=== PATIENT | female | born 1995 | race Caucasian/White ===

== ENCOUNTER 2017-02-27 01:45 | Emergency (ER) | payer BC ==
[2017-02-27 03:22] VITALS: BP 142/63
--- NOTE | 2017-02-27 04:30 | ED ---
Alfa Peng Rebecca, scribed for Mika Sargent MD on 02/27/17 at 0224 . Bite Injury/Animal - HPI Summary HPI Summary: Pt is a 21 y/o F who presents to ED s/p potential bat bite at 0100 on this date. Pt reports a bat had gotten into her house and was trying to catch it with a plastic garbage bag when she believes she got bitten. Reports a small red kassy on her L middle finger. Sx aggravated and alleviated by nothing. Denies any pain, ranking pain as 0/10. Confirms she caught the bat in a garbage bag which is in her car. Tetanus shot is UTD. Permanent resident of [facility], though she resides in [facility]. [facility] has been notified. - History of Current Complaint Chief Complaint: EDGeneral Stated Complaint: BIT BY BAT LEFT MIDDLE FINGER Time Seen by Provider: 02/27/17 02:20 Hx Obtained From: Patient Onset of Injury: Happened hours ago - 1.5 hours ago, Still Present Type of Bite: Wild Animal - Bat Has Animal Been Immunized?: No Severity Currently: None Pain Intensity: 0 Pain Scale Used: 0-10 Numeric Aggravating Factor(s): Nothing Alleviating Factor(s): Nothing Associated Signs And Symptoms: Positive: Negative Animal Available for Observation: Yes Animal Control Notified: Yes - Allergies/Home Medications Allergies/Adverse Reactions: Allergies Allergy/AdvReac Type Severity Reaction Status Date / Time Penicillins Allergy Hives Verified 12/13/12 21:19 Shellfish Allergy Allergy Hives Verified 12/13/12 21:19 PMH/Surg Hx/FS Hx/Imm Hx Endocrine/Hematology History: Denies: Hx Anticoagulant Therapy, Hx Diabetes, Hx Thyroid Disease Cardiovascular History: Denies: Hx Hypertension, Hx Pacemaker/ICD Respiratory History: Denies: Hx Asthma, Hx Chronic Obstructive Pulmonary Disease (COPD) GI History: Denies: Hx Ulcer History: Denies: Hx Renal Disease Neurological History: Denies: Hx Dementia, Hx Seizures Psychiatric History: Denies: Hx Substance Abuse - Surgical History Surgery Procedure, Year, and Place: ta Infectious Disease History: Denies: Hx Clostridium Difficile, Hx Hepatitis, Hx Human Immunodeficiency Virus (HIV), Hx of Known/Suspected MRSA, Hx Shingles, Hx Tuberculosis, Hx Known/ Suspected VRE, Hx Known/Suspected VRSA, History Other Infectious Disease, Traveled Outside the [place] in Last 30 Days - Family History Known Family History: Positive: Diabetes - Social History Alcohol Use: Occasionally Substance Use Type: Reports: None Smoking Status (MU): Never Smoked Tobacco Have You Smoked in the Last Year: No Review of Systems Constitutional: Negative Eyes: Negative ENT: Negative Cardiovascular: Negative Respiratory: Negative Gastrointestinal: Negative Genitourinary: Negative Musculoskeletal: Negative Positive: Other - Small redmark on her L palm Neurological: Negative Psychological: Normal All Other Systems Reviewed And Are Negative: Yes Physical Exam - Summary Physical Exam Summary: The patient is well-nourished in no acute distress and in no acute pain. The skin is warm and dry and skin color reflects adequate perfusion. Red kassy on her left hand on the palmar aspect in front of the 4th finger. Skin appears intact, not broken. FROM with intact pulses. HEENT: The head is normocephalic and atraumatic. The pupils are equal and reactive. The conjunctivae are clear and without drainage. Nares are patent and without drainage. Mouth reveals moist mucous membranes and the throat is without erythema and exudate. The external ears are intact. The ear canals are patent and without drainage. The tympanic membranes are intact. Neck is supple with full range of motion and non-tender. There are no carotid bruits. There is no neck vein distension. Respiratory: Chest is non-tender. Lungs are clear to auscultation and breath sounds are symmetrical and equal. Cardiovascular: Hear is regular rate and rhythm. There is no murmur or rub auscultated. Pulses are symmetrical and equal. Musculoskeletal: There is no back pain noted. Extremities are non-tender with full range of motion. There is good capillary refill. Neurological: Patient is alert and oriented to person, place and time. The patient has symmetrical motor strength in all four extremities. Cranial nerves are grossly intact. Psychiatric: The patient has an appropriate affect and does not exhibit any anxiety or depression. Triage Information Reviewed: Yes Vital Signs On Initial Exam: Initial Vitals Temp Pulse Resp BP Pulse Ox 97.4 F 96 16 141/76 100 02/27/17 01:45 02/27/17 01:45 02/27/17 01:45 02/27/17 01:45 02/27/17 01:45 Vital Signs Reviewed: Yes Diagnostics - Vital Signs Vital Signs Temp Pulse Resp BP Pulse Ox 02/27/17 01:45 97.4 F 96 16 141/76 100 - Laboratory Lab Statement: Any lab studies that have been ordered have been reviewed, and results considered in the medical decision making process. Re-Evaluation - Re-Evaluation First Eval Re-Evaluation Time: 02:50 Change: Unchanged Comment: Notified patient that [facility] will come over tomorrow to test the bat. Bite Injury Course/Dx - Course Assessment/Plan: Pt is a 21 y/o F with a CC of possible bat bite on her L palm at 0100 this morning. Pt reports she caught the bat in a plastic garbage bag, which is in her car. [facility] has been notified. [facility] will test the bat tomorrow and determine her care based on results. - Diagnoses Provider Diagnosis: Exposure to bat without known bite Discharge - Discharge Plan Condition: Stable Disposition: HOME Referrals: Casie Lagos DO [Primary Care Provider] - 3 Days Additional Instructions: Wash hands. [facility] will come over tomorrow to test the bat and determine a course of treatment, if necessary. The documentation as recorded by the Alfa mcneill Rebecca accurately reflects the service I personally performed and the decisions made by , Mika Sargent MD.
== END 2017-02-27 03:21 | disposition home or self-care (01) ==
LOC: ED 01:45
DX: Z20.3 Contact with and (suspected) exposure to rabies (principal); Z88.0 Allergy status to penicillin; Z91.013 Allergy to seafood
CPT/HCPCS: 99282

== ENCOUNTER 2017-10-24 17:16 | Emergency (ER) | payer BC, OTHER ==
[2017-10-24] MEDS ORDERED: NS 0.9% 1000 ML* 1,000 ML IV ONE (17:22)
[2017-10-24] MEDS ORDERED: Metoclopramide IV* 5 MG/ML 2 ML VIAL IV ONE (17:53)
[2017-10-24 18:08] LABS: ABS Basophils 0.1 10^3/ul (0-0.2); ABS Eosinophils 0 10^3/ul (0-0.6); ABS Lymphocytes 1.3 10^3/ul (1.0-4.8); ABS Monocytes 0.8 10^3/ul (0-0.8); ABS Neutrophils 18.3 10^3/ul (1.5-7.7); ABS Nucleated RBC 0 10^3/ul; Eosinophil % 0 % (0-6); Hematocrit 36 % (35-47); Lymphocyte % 6.4 % (25-47); Mean Corpuscular HGB Conc 34 g/dl (31-36); Mean Corpuscular Hemoglobin 32 pg (27-31); Mean Corpuscular Volume 96 fL (80-97); Mean Platelet Volume 8 um3 (7.4-10.4); Nucleated Red Blood Cells % 0; Platelet Count 306 10^3/ul (150-450); Red Blood Count 3.71 10^6/ul (4.0-5.4); Red Cell Distribution Width 13 % (10.5-15); White Blood Count 20.4 10^3/ul (3.5-10.8)
--- NOTE | 2017-10-24 18:15 | ED ---
Abdominal Pain/Female - HPI Summary HPI Summary: 23 week patient here with nausea and vomiting which developed in the middle of last night. She reports development of right lower quadrant pain since N/V started. Has a low-grade headache which she feels is from dehydration - has not been able to keep any liquids down since this started. No history of hyperemesis gravidarum during her . She denies fevers, chills, dysuria, urinary urgency, hematuria, pelvic pain or cramping, vaginal discharge or irritation. She does report some Rt sided lower back discomfort but didn't think much of it. Pain in RLQ is worse w/ riding over bumps on way here. Has not been urinating much d/t lack of fluid intake w/ N/V. Last BM ? No previous h/o ab surgery. She follows with [facility] [place] and has had care. Did have influenza A but this was dx'd on DAy 5 - tried tamiflu but couldn't keep it down. Has had residual nasal congestino since but otherwise respiratory tract is clear and no cough or chest pain, SOB. Overall has had a healthy . - History of Current Complaint Chief Complaint: EDAbdPain Stated Complaint: VOMITING Time Seen by Provider: 10/24/17 17:22 Hx Obtained From: Patient, Family/Contract Project Manager - sister present w/ her today Hx Last Menstrual Period: 08/13/16 Pain Intensity: 4 Allergies/Adverse Reactions: Allergies Allergy/AdvReac Type Severity Reaction Status Date / Time MS Penicillins [Penicillins] Allergy Hives Verified 12/13/12 21:19 MS Shellfish Allergy Allergy Hives Verified 12/13/12 21:19 [Shellfish Allergy] PMH/Surg Hx/FS Hx/Imm Hx Previously Healthy: Yes Endocrine/Hematology History: Denies: Hx Anticoagulant Therapy, Hx Diabetes, Hx Thyroid Disease Cardiovascular History: Denies: Hx Hypertension, Hx Pacemaker/ICD Respiratory History: Reports: Other Respiratory Problems/Disorders - INFLUENZA A THIS SEASON - RESOLVED W/O RESIDUAL EFFECTS Denies: Hx Asthma, Hx Chronic Obstructive Pulmonary Disease (COPD) GI History: Denies: Hx Crohn's Disease, Hx Gall Bladder Disease, Hx Gastroesophageal Reflux Disease, Hx Ulcer History: Denies: Hx Kidney Infection, Hx Kidney Stones, Hx Renal Disease Neurological History: Denies: Hx Dementia, Hx Seizures Psychiatric History: Denies: Hx Substance Abuse - Surgical History Surgery Procedure, Year, and Place: ta Infectious Disease History: No Infectious Disease History: Denies: Hx Clostridium Difficile, Hx Hepatitis, Hx Human Immunodeficiency Virus (HIV), Hx of Known/Suspected MRSA, Hx Shingles, Hx Tuberculosis, Hx Known/ Suspected VRE, Hx Known/Suspected VRSA, History Other Infectious Disease, Traveled Outside the [place] in Last 30 Days - Family History Known Family History: Positive: Diabetes - Social History Occupation: Employed Full-time - NURSE IN ED Alcohol Use: None - not since Hx Substance Use: No Substance Use Type: Reports: None Hx Tobacco Use: No Smoking Status (MU): Never Smoked Tobacco Have You Smoked in the Last Year: No Review of Systems Positive: Fatigue Eyes: Negative ENT: Negative Negative: Chest Pain Negative: Shortness Of Breath, Cough Positive: Abdominal Pain, Vomiting, Nausea. Negative: Diarrhea Positive: flank pain - ?. Negative: burning, dysuria, discharge, frequency, hematuria, incontinence, pain, urgency Musculoskeletal: Negative Skin: Negative Positive: Headache - dull Psychological: Normal All Other Systems Reviewed And Are Negative: Yes Physical Exam Triage Information Reviewed: Yes Vital Signs On Initial Exam: Initial Vitals Temp Pulse Resp BP Pulse Ox 98.6 F 108 18 116/65 98 10/24/17 17:19 10/24/17 17:19 10/24/17 17:19 10/24/17 17:19 10/24/17 17:19 Vital Signs Reviewed: Yes Appearance: Positive: No Pain Distress, Well-Nourished, Ill-Appearing - appears fatiged Skin: Positive: Warm, Skin Color Reflects Adequate Perfusion, Dry Head/Face: Positive: Normal Head/Face Inspection Eyes: Positive: Normal, EOMI ENT: Positive: Normal ENT inspection, Hearing grossly normal, Pharynx normal - oral mucosa moist but lips are dry, Nasal congestion - subtle, TMs normal. Negative: Nasal drainage, Tonsillar swelling, Tonsillar exudate, Trismus, Muffled voice Neck: Positive: Supple, Nontender, No Lymphadenopathy Respiratory/Lung Sounds: Positive: Clear to Auscultation, Breath Sounds Present. Negative: Rales, Rhonchi, Wheezes Cardiovascular: Positive: Normal, Tachycardia - mild, S1, S2. Negative: Murmur , Rub Abdomen Description: Positive: No Organomegaly, Soft, Other: - abdomen - TTP in RLQ - no rebounding; all other areas of ab are NTTP; movement seen and felt in RLQ. Negative: CVA Tenderness (R), CVA Tenderness (L) Bowel Sounds: Positive: Present Musculoskeletal: Positive: Normal, Strength/ROM Intact Neurological: Positive: Normal, Sensory/Motor Intact, Alert, Oriented to Person Place, Time, CN Intact II-III Psychiatric: Positive: Normal Diagnostics - Vital Signs Vital Signs Temp Pulse Resp BP Pulse Ox 10/24/17 17:19 98.6 F 108 18 116/65 98 - Laboratory Lab Results: Lab Results 10/24/17 Range/Units 17:55 WBC 20.4 H (3.5-10.8) 10^3/ul RBC 3.71 L (4.0-5.4) 10^6/ul Hgb 12.0 (12.0-16.0) g/dl Hct 36 (35-47) % MCV 96 (80-97) fL MCH 32 H (27-31) pg MCHC 34 (31-36) g/dl RDW 13 (10.5-15) % Plt Count 306 (150-450) 10^3/ul MPV 8 (7.4-10.4) um3 Neut % (Auto) 89.4 H (38-83) % Lymph % (Auto) 6.4 L (25-47) % [place] % (Auto) 3.9 (1-9) % Eos % (Auto) 0 (0-6) % Baso % (Auto) 0.3 (0-2) % Absolute Neuts (auto) 18.3 H (1.5-7.7) 10^3/ul Absolute Lymphs (auto) 1.3 (1.0-4.8) 10^3/ul Absolute Monos (auto) 0.8 (0-0.8) 10^3/ul Absolute Eos (auto) 0 (0-0.6) 10^3/ul Absolute Basos (auto) 0.1 (0-0.2) 10^3/ul Absolute Nucleated RBC 0 10^3/ul Nucleated RBC % 0 Result Diagrams: 10/24/17 17:55 10/24/17 17:55 Lab Statement: Any lab studies that have been ordered have been reviewed, and results considered in the medical decision making process. Re-Evaluation - Re-Evaluation First Eval Change: Improved - nausea initially improved with reglan however pt vomited after a repeat ab exam - compazine and benadryl ordered Second Eval Change: Improved - nausea resolved - resting comfortably -pain minimal Abdominal Pain Fem Course/Dx - Course Course Of Treatment: 23 week patient presents with abrupt nausea vomiting and right lower quadrant pain in the middle of the night last night. She reports her pain is 4 out of 10 presently and worse with movement better at rest. Notes she had pain in this area while riding over here when hitting bumps in the road. Her vitals are remarkable for mild tachycardia at 108 however blood pressure, temperature, pulse ox and respirations are within normal limits. Her labs are impressive for an elevated white blood cell count of 20 with an elevated CRP of 11. Lactic acid is within normal limits. Her urinalysis reveals ketones however otherwise is normal. An ultrasound of for appendix and urinary tract was ordered. Appendix was not identified however secondary inflammation and fluid was also not seen. Her renal ultrasound revealed left- sided hydronephrosis with good jets. Discussed case with Dr. Chavarria [employer] who was concerned that her white count was more elevated than it should be for alone. Spoke with Dr. Wilkins who suggested MRI of the abdomen versus monitoring with close follow-up. Discussed these options with the patient who initially wanted monitoring with close follow-up however she developed return of nausea and vomiting despite Reglan and temperature went from 98-100.1F. An MRI of the abdomen was ordered and results are negative for appendicitis. Patient reports she feels much better after second round of antiemetic, this time Compazine and Benadryl. She is receiving IV fluid and supplement replacement for mild hypokalemia and hypomagnesemia. She'll be discharged tonight. Advised follow-up with [facility] and PCP but to return to the ED if danger signs or symptoms present. Patient agrees with plan. - Diagnoses Provider Diagnoses: Abdominal pain in , Nausea/vomiting in Discharge - Discharge Plan Condition: Stable Disposition: HOME Prescriptions: Prochlorperazine TAB* [Compazine Tab*] 10 mg PO Q6H PRN #10 tab PRN Reason: Nausea Patient Education Materials: Nausea and Vomiting in (ED), Abdominal Pain in (ED) Forms: *Work Release Referrals: Casie Lagos DO [Doctor of Osteopathy] - Additional Instructions: The definitive cause of your right-sided abdominal pain with nausea and vomiting was not identified tonight however you do not appear to have any surgical pathologies requiring you to stay in the hospital. You will be sent home with a nausea medication and encouraged to stay hydrated with water, Gatorade, broth, etc. Advance diet as tolerated. Follow-up with your primary care provider this week if symptoms linger. If you develop cramping and vaginal discharge/bleeding follow-up with [facility]. If you develop a spike in fever despite acetaminophen, intractable vomiting and diarrhea, worsening of abdominal pain, return to the emergency department
[2017-10-24 18:21] LABS: EGFR Non-African American 174.2 (>60)
--- NOTE | 2017-10-24 19:05 | RAD ---
HISTORY: Hydronephrosis, assess for stone COMPARISONS: None TECHNIQUE: Multiple transverse and longitudinal ultrasound images were obtained of the right kidney and bladder using grayscale and color Doppler imaging. FINDINGS: RIGHT KIDNEY: The right kidney is normal in shape, size, contour, and echogenicity. There is moderate pelvocaliectasis. There is no appreciable nephrolithiasis. The right kidney measures 11.7 x 5.3 x 5.1 cm. LEFT KIDNEY: No images are submitted of the left kidney . BLADDER: The bladder is smooth in contour. Bilateral ureteral jets are identified. AORTA AND IVC: No images are submitted of the vasculature. RETROPERITONEUM: Unremarkable. OTHER: None. IMPRESSION: LEFT HYDRONEPHROSIS WITHOUT APPRECIABLE NEPHROLITHIASIS. BILATERAL URETERAL JETS ARE NOTED.
--- NOTE | 2017-10-24 19:12 | RAD ---
HISTORY: Right lower quadrant pain, COMPARISONS: None TECHNIQUE: Multiple transverse and longitudinal ultrasound images were obtained of the right lower quadrant using grayscale and color Doppler imaging. FINDINGS: The appendix is not visualized. There is no free or loculated fluid within the right lower quadrant. IMPRESSION: THE APPENDIX IS NOT VISUALIZED. THERE IS NO FREE OR LOCULATED FLUID WITHIN THE RIGHT LOWER QUADRANT.
[2017-10-24 19:13] LABS: Urine Appearance Clear; Urine Blood Negative (Negative); Urine Color Yellow; Urine Ketones 2+ (Negative); Urine Protein Negative (Negative); Urine Urobilinogen Negative (Negative)
[2017-10-24] MEDS ORDERED: PROCHLORPERAZINE INJ 5 MG/ML 2 ML VIAL IV ONE (20:21)
[2017-10-24] MEDS ORDERED: diPHENhydraMINE IV* 50 MG/ML 1 ml VIAL (BENADRYL) SLOW PUSH ONE (20:21)
[2017-10-24] MEDS ORDERED: Magnesium Sulfate 1 GM IV* 1 GM/100 ML BAG IV ONE (20:24)
[2017-10-24] MEDS ORDERED: NS 0.9% w/ 20 Meq KCL 1000 ML* 1,000 ML IV SCH (21:00)
[2017-10-24] MEDS ORDERED: NS 0.9% w/ 20 Meq KCL 1000 ML* 1,000 ML IV ONE (21:00)
--- NOTE | 2017-10-24 21:59 | RAD ---
HISTORY: Right lower quadrant pain, fever, nausea and vomiting, 23 weeks COMPARISONS: Ultrasound dated October 24, 2017 TECHNIQUE: The following sequences were obtained of the abdomen: Axial T1-weighted images, T2-weighted images and T2-weighted images with fat saturation, coronal T1 and T2-weighted images, sagittal T2-weighted images. FINDINGS: HEPATOBILIARY SYSTEM: Grossly normal. SPLEEN: Grossly normal. ADRENALS: Grossly normal. KIDNEYS: Again noted is right-sided pelvocaliectasis. BLADDER: Unremarkable. PELVIC ORGANS: The uterus is gravid. anatomy is not well evaluated on the current examination. There is no appreciable retroplacental fluid collections. There is dilatation of the pelvic vasculature consistent with the gravid state. GI TRACT: There is no obstruction. A tubular, vermiform, hollow viscus that is blind-ending and heterogeneous from the cecum is identified, best seen on coronal images 20-34 and sagittal images 20-32, consistent with the appendix. This measures up to 0.5 cm in caliber. This is located at the level of the right mid abdomen anterior to the psoas muscle. There is no appreciable loculated fluid collection. There is no appreciable periappendiceal inflammatory change, though evaluation is limited secondary to technique and the patient's gravid state. BONES AND SOFT TISSUES: Unremarkable IMPRESSION: A NORMAL APPEARING APPENDIX IS IDENTIFIED WITHOUT PERIAPPENDICEAL INFLAMMATORY CHANGE OR LOCULATED FLUID COLLECTION. IF THERE IS PERSISTENT CLINICAL CONCERN FOR APPENDICITIS, RECOMMEND ATTENTION ON FOLLOW-UP IMAGING.
[2017-10-24] MEDS ORDERED: Prochlorperazine TAB* 10 MG PO ONE (22:49)
[2017-10-25 00:21] VITALS: BP 110/57
== END 2017-10-25 00:21 | disposition home or self-care (01) ==
LOC: ED 17:16
DX: O21.2 Late vomiting of pregnancy (principal); O99.89 Other specified diseases and conditions complicating pregnancy, childbirth and the puerperium; N13.30 Unspecified hydronephrosis; O26.892 Other specified pregnancy related conditions, second trimester; R10.9 Unspecified abdominal pain; Z3A.23 23 weeks gestation of pregnancy; Z88.0 Allergy status to penicillin
CPT/HCPCS: 36415; 74181; 76705; 76775; 80053; 81003; 83605; 83690; 83735; 85025; 86140; 87502; 96361; 96365; 96366; 96375; 99283; J0780; J1200; J2765; J3475

== ENCOUNTER 2018-03-03 07:53 | Inpatient (IN) | payer BC, OTHER ==
[2018-03-03] MEDS ORDERED: Misoprostol TAB* 100 MCG ONE (09:04)
--- NOTE | 2018-03-03 09:18 | HP ---
General Information - General Information Maternal Age: 22 Grav: 1 Para: 0 SAB: 0 IEA: 0 Estimated Due Date: 02/20/18 Determined By: Early Ultrasound Gestational Age in Weeks and Days: 41 Weeks and 4 Days Maternal Blood Type and Rh: B Positive - Results this Serology/RPR Result: Non-Reactive Rubella Result: Immune HBsAg Result: Negative HIV Result: Negative GBS Culture Result: Negative Past Medical History Pertinent Past Medical History: Non-Contributory Pertinent Past Surgical History: See Records - Tonsillectomy Pertinent Family History: Non-Contributory - Antepartal Records Antepartal Records: Reviewed, Uncomplicated Review of Systems Constitutional: Comfortable CV Complaint: No Respiratory: Shortness of Breath: No Gastrointestinal: No Nausea/Vomiting, Normal Bowel Movement Genitourinary: No Bleeding, No Leaking Fluid Musculoskeletal: No Complaint Neurological: No Headache Movement: Normal Exam Allergies/Adverse Reactions: Allergies MS Penicillins [Penicillins] Allergy (Verified 12/13/12 21:19) Hives MS Shellfish Allergy [Shellfish Allergy] Allergy (Verified 12/13/12 21:19) Hives BP 123/70, P 102, R 18, T 98.7 - Measurements Height: 5 ft 7 in Weight: 195 lb Weight in lbs: 195 Body Mass Index (BMI): 30.5 Pre- Weight: 140 lb Weight Gained This : 55 lbs and 0 ozs - Exam Abdomen: No Upper Quadrant Pain Breast: Breast Exam Deferred CVA: No CVA Tenderness Extremities: No Edema Heart: Normal Rhythm/Heart Sounds HEENT: No Significant Findings Lungs: Clear Bilaterally Rectal: Rectal Exam Deferred Reflexes: DTR 2+ Thyroid: No Thyromegaly - Abdominal Exam Abdomen Exam: Non-Tender, Fundal Height Consistent with Dates - Ultrasound/Biophysical Profile Ultrasound Status: Not Done Targeted Exam Findings See L&D Outpatient Visit Provider Note for Findings: N/A Estimated Weight: 7 1/2 lbs Cervical Exam: 3cm Effacement: 80% Station: -1 Presenting Part: Vertex Membrane Status: Intact Bleeding/Discharge: None EFM Findings - External Monitor Findings Baseline Heart Rate: 130 External Monitor Findings: Accelerations Present, No Pattern of Variable or Late Decelerations, Variability Moderate, Baseline Stable Contractions: None Assessment/Plan - Reason for Visit Reason for Visit: postdates induction of labor - Obstetrical Risk Factors Obstetrical Risk Factors: Post-Dates - 41 12/24 - Plan Plan: Induction - Date/Time of Admission Date of Admission: 03/03/18 Time of Admission: 09:18
[2018-03-03 09:42] LABS: ABS Basophils 0 10^3/ul (0-0.2); ABS Eosinophils 0.1 10^3/ul (0-0.6); ABS Lymphocytes 1.9 10^3/ul (1.0-4.8); ABS Monocytes 0.7 10^3/ul (0-0.8); ABS Neutrophils 7.2 10^3/ul (1.5-7.7); ABS Nucleated RBC 0 10^3/ul; Eosinophil % 0.9 % (0-6); Hematocrit 38 % (35-47); Hemoglobin 12.7 g/dl (12.0-16.0); Lymphocyte % 18.8 % (25-47); Mean Corpuscular HGB Conc 34 g/dl (31-36); Mean Corpuscular Hemoglobin 32 pg (27-31); Mean Corpuscular Volume 96 fL (80-97); Mean Platelet Volume 8.8 um3 (7.4-10.4); Nucleated Red Blood Cells % 0; Platelet Count 287 10^3/ul (150-450); Red Blood Count 3.91 10^6/ul (4.00-5.40); Red Cell Distribution Width 13 % (10.5-15); White Blood Count 9.9 10^3/ul (3.5-10.8)
[2018-03-03] MEDS ORDERED: Oxytocin in LR* 20 UNITS/1,000 ML BAG IVPB SCH (15:00)
[2018-03-03] MEDS ORDERED: OBEPIDURAL* 250 ML EPIDURAL ONE (15:09)
[2018-03-03] MEDS ORDERED: fentaNYL* 50 MCG/ML 2 ML VIAL (100 MCG VIAL) IV ONE (15:15)
[2018-03-03] MEDS ORDERED: Sodium Citrate/Citric Acid* 15 ML UDC PO PRN (15:52)
[2018-03-03] MEDS ORDERED: Phenylephrine IV* 40 MCG/ML 10 ML SYRINGE IV PUSH PRN ×2 (15:52)
[2018-03-03] MEDS ORDERED: Famotidine TAB* 20 MG PO PRN (15:52)
[2018-03-03] MEDS ORDERED: EPHEDrine (Pressors)* 50 MG/ML VIAL IV PUSH PRN ×2 (15:52)
[2018-03-03] MEDS ORDERED: OBEPIDURAL* 250 ML EPIDURAL SCH (16:00)
[2018-03-04] MEDS ORDERED: Ibuprofen TAB* 600 MG ONE (01:55)
[2018-03-04] MEDS ORDERED: Witch Hazel PAD* JAR TOPICAL PRN (01:56)
[2018-03-04] MEDS ORDERED: Acetaminophen TAB* 325 MG PO PRN (01:56)
[2018-03-04] MEDS ORDERED: Dibucaine 1% 28.35 GM TUBE PR PRN (01:56)
[2018-03-04] MEDS: Ibuprofen TAB* 600 MG PO PRN ×3 (10:20→22:01)
[2018-03-04] MEDS: Docusate CAP* 100 MG PO SCH ×3 (10:20→22:01)
[2018-03-05 08:30] LABS: ABS Basophils 0 10^3/ul (0-0.2); ABS Eosinophils 0.2 10^3/ul (0-0.6); ABS Lymphocytes 1.9 10^3/ul (1.0-4.8); ABS Monocytes 0.6 10^3/ul (0-0.8); ABS Neutrophils 10.5 10^3/ul (1.5-7.7); ABS Nucleated RBC 0 10^3/ul; Eosinophil % 1.7 % (0-6); Hematocrit 34 % (35-47); Hemoglobin 11.5 g/dl (12.0-16.0); Lymphocyte % 14.2 % (25-47); Mean Corpuscular HGB Conc 34 g/dl (31-36); Mean Corpuscular Hemoglobin 33 pg (27-31); Mean Corpuscular Volume 95 fL (80-97); Mean Platelet Volume 8.3 um3 (7.4-10.4); Nucleated Red Blood Cells % 0; Platelet Count 250 10^3/ul (150-450); Red Blood Count 3.54 10^6/ul (4.00-5.40); Red Cell Distribution Width 13 % (10.5-15); White Blood Count 13.3 10^3/ul (3.5-10.8)
[2018-03-05 08:48] VITALS: BP 111/66
[2018-03-05] MEDS: Ibuprofen TAB* 600 MG PO PRN (08:57)
[2018-03-05] MEDS: Docusate CAP* 100 MG PO SCH (08:57)
[2018-03-05] MEDS ORDERED: Ferrous Gluconate TAB* 324 MG TAB PO SCH (09:00)
== END 2018-03-05 14:52 | disposition home or self-care (01) | DRG 560 ==
LOC: MCHOBOUT 07:53 → MCHOB 08:25
PROVIDERS: ADMIT Midwife; ATTEND Midwife
PROC: 10E0XZZ Delivery of Products of Conception, External Approach (ICD-10-PCS; principal; 2018-03-04)
PROC: 3E033VJ Introduction of Other Hormone into Peripheral Vein, Percutaneous Approach (ICD-10-PCS; 2018-03-04)
PROC: 10907ZC Drainage of Amniotic Fluid, Therapeutic from Products of Conception, Via Natural or Artificial Opening (ICD-10-PCS; 2018-03-04)
PROC: 0HQ9XZZ Repair Perineum Skin, External Approach (ICD-10-PCS; 2018-03-04)
DX: O48.0 Post-term pregnancy (principal); O70.0 First degree perineal laceration during delivery; Z37.0 Single live birth; Z3A.41 41 weeks gestation of pregnancy
CPT/HCPCS: 36415; 85025; 86850; 86900; 86901; A9270-GY; S0191

== ENCOUNTER 2018-03-20 09:32 | Observation (INO) | payer BC, OTHER ==
[2018-03-20] MEDS ORDERED: Ketorolac INJ* 30 MG/ML 1 ML VIAL IV PUSH ONE (10:04)
[2018-03-20 10:19] LABS: ABS Basophils 0 10^3/ul (0-0.2); ABS Eosinophils 0 10^3/ul (0-0.6); ABS Lymphocytes 0.7 10^3/ul (1.0-4.8); ABS Monocytes 0.3 10^3/ul (0-0.8); ABS Neutrophils 12.1 10^3/ul (1.5-7.7); ABS Nucleated RBC 0 10^3/ul; Eosinophil % 0.3 % (0-6); Hematocrit 39 % (35-47); Hemoglobin 13.2 g/dl (12.0-16.0); Mean Corpuscular HGB Conc 34 g/dl (31-36); Mean Corpuscular Hemoglobin 32 pg (27-31); Mean Corpuscular Volume 94 fL (80-97); Mean Platelet Volume 7.8 um3 (7.4-10.4); Nucleated Red Blood Cells % 0; Platelet Count 449 10^3/ul (150-450); Red Blood Count 4.09 10^6/ul (4.00-5.40); Red Cell Distribution Width 12 % (10.5-15); White Blood Count 13.1 10^3/ul (3.5-10.8)
[2018-03-20 10:40] LABS: EGFR Non-African American 108.2 (>60)
--- NOTE | 2018-03-20 11:17 | RAD ---
HISTORY: RLQ pain COMPARISONS: None TECHNIQUE: Multiple transverse and longitudinal ultrasound images were obtained of the right lower quadrant using grayscale and color Doppler imaging. FINDINGS: The appendix is not visualized. There is a small amount of free fluid within the right lower quadrant. There is no loculated fluid collection. IMPRESSION: FREE FLUID WITHIN THE RIGHT LOWER QUADRANT. THERE IS NO LOCULATED FLUID COLLECTION. THE APPENDIX IS NOT VISUALIZED.
--- NOTE | 2018-03-20 11:27 | RAD ---
INDICATION: . Right lower quadrant pain. COMPARISON: None TECHNIQUE: Longitudinal and transverse transabdominal and limited transvaginal scans of the pelvis were obtained. FINDINGS: Uterus: The uterus is mildly prominent consistent with recent state. There is no focal mass. There is mild heterogeneity. The uterus measures 10.9 x 5.5 x 7.5 cm. Endometrial thickness: The endometrial thickness normal and measured at 1.0 cm. The endometrial stripe is mildly heterogeneous and there is a small amount of endometrial fluid.. Free fluid: There is a small amount of free fluid in the cul-de-sac . Ovaries: The ovaries are normal in size. The right ovary measures 4.1 x 1.6 x 3.0 cm. The left ovary measures 3.9 x 2.0 x 3.1 cm. . Doppler interrogation demonstrates flow to each ovary. Other: None IMPRESSION: POST APPEARANCE OF THE UTERUS. MILDLY HETEROGENEOUS ENDOMETRIUM WITH SMALL AMOUNT OF ENDOMETRIAL FLUID.
[2018-03-20] MEDS ORDERED: NS 0.9% 1000 ML* 1,000 ML IV ONE (11:38)
--- NOTE | 2018-03-20 12:35 | RAD ---
INDICATION: March 04, 2018. RIGHT flank pain. COMPARISON: March 20, 2018 RIGHT lower quadrant and pelvic ultrasound. October 24, 2017 MRI abdomen. TECHNIQUE: Multidetector CT images were obtained from the lung bases to the ischial tuberosities. Evaluation of the viscera is limited without IV contrast. Multiplanar reformation. REPORT: Unremarkable visualized inferior thorax. Unremarkable liver, gallbladder, and pancreas. Top normal 12.8 cm cephalocaudal spleen. Negative for CT abnormality of the upper GI or small bowel. The appendix is ill-defined visualized posterior to the cecum extending medially over the anterior margin of the RIGHT psoas muscle. The appendix measures approximate 1 cm maximum diameter. No definitive appendicolith visualized. Moderate periappendiceal change and small lymph nodes with dominant 0.8 cm short axis node. Small volume of RIGHT lower quadrant and pelvic free fluid. No CT abnormality of the unopacified colon. Normal adrenal glands. Negative for obstructive uropathy. The nondilated RIGHT ureter courses through the region of appendiceal inflammation. Unremarkable urinary bladder. Moderately prominent anteverted uterus. Unremarkable adnexal regions. Unremarkable abdominal aorta and iliac arteries. Physiologic distention of the IVC. Negative for suspicious osseous structures. IMPRESSION: #. Acute appendicitis with moderate periappendiceal inflammatory change. Negative for perienteric abscess. #. Associated RIGHT lower quadrant reactive lymph nodes. Results assessed with Dr. Augustin 03/20/2018 12:31 PM EDT
[2018-03-20] MEDS ORDERED: fentaNYL* 50 MCG/ML 2 ML VIAL (100 MCG VIAL) ONE ×2 (13:48→14:53)
[2018-03-20] MEDS ORDERED: Midazolam* 1 MG/ML 5 ML VIAL (5 MG) ONE (13:48)
[2018-03-20] MEDS ORDERED: Atracurium* 10 MG/ML 10 ML VIAL ONE (13:48)
[2018-03-20] MEDS ORDERED: ceFOXitin 2 GM IVPREMIX* 2 GM/50 ML BAG IVPB ONE (13:59)
[2018-03-20] MEDS ORDERED: Bupivacaine 0.5% SDV PF* 30ML VIAL ONE (14:04)
[2018-03-20] MEDS ORDERED: PROCHLORPERAZINE INJ 5 MG/ML 2 ML VIAL ONE (14:39)
[2018-03-20] MEDS ORDERED: Propofol* 10 MG/ML 20 ML BTL IV PUSH ONE (14:39)
[2018-03-20] MEDS ORDERED: Neostigmine Methylsulfate* 1 MG/ML 10 ML VIAL (1 mg/ml) ONE (14:39)
[2018-03-20] MEDS ORDERED: Glycopyrrolate IV* 0.2 MG/ML 1 ML VIAL ONE (14:39)
[2018-03-20] MEDS ORDERED: Dexamethasone IV* 4 MG/ML 1 ML (4 MG) ONE (14:39)
[2018-03-20] MEDS ORDERED: fentaNYL* 50 MCG/ML 2 ML VIAL (100 MCG VIAL) IV PRN (14:42)
[2018-03-20] MEDS ORDERED: Naloxone* 0.4 MG/ML 1 ML VIAL IV PRN (14:42)
[2018-03-20] MEDS ORDERED: Morphine INJ* 2 MG/ML 1 ML CARPUJECT IV PRN ×2 (14:42→16:38)
[2018-03-20] MEDS ORDERED: DiMENhydriNATE IV* 50 MG/ML VIAL IV PUSH PRN (14:42)
[2018-03-20] MEDS ORDERED: oxyCODONE/Acetamin 5/325 MG* TAB PO PRN (14:42)
[2018-03-20] MEDS ORDERED: PROCHLORPERAZINE INJ 5 MG/ML 2 ML VIAL IV PRN (14:42)
[2018-03-20] MEDS ORDERED: Scopolamine 1.5 mg* PATCH TRANSDERM PRN (14:42)
--- NOTE | 2018-03-20 15:18 | HP ---
HISTORY AND PHYSICAL: DATE OF ADMISSION: 03/20/18 REASON FOR ADMISSION: Abdominal pain. CHIEF COMPLAINT: Right lower quadrant abdominal pain. 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 Yesterday, she developed some generalized abdominal discomfort, became more localized in the right lower quadrant over the course of the last 12 to 16 hours. This has been associated with anorexia without vomiting or diarrhea. She had some chills last night, but she did not take her temperature. Over the course of the evening, the pain became worse and more intense with movement. She presented to the emergency room here today and was noted to have a temperature of 101. Her heart rate was elevated up into the 120s. Laboratory workup included a white blood cell count of 13,000 with an elevated CRP of 48.52. The remainder of the her laboratories were unremarkable. She underwent both a pelvic ultrasound and right lower quadrant abdominal ultrasound, which showed some free fluid in the pelvis, but the appendix was not visualized. She subsequently underwent a CT scan of the abdomen and pelvis without oral or IV contrast - she is allergic to SHELLFISH - and this showed findings consistent with acute appendicitis without abscess or extraluminal air to suggest perforation. Surgical consultation has been obtained. PAST MEDICAL HISTORY: Unremarkable. PAST SURGICAL HISTORY: None. MEDICATIONS: vitamins. ALLERGIES: PENICILLIN and SHELLFISH. 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 She does not use tobacco or alcohol. REVIEW OF SYSTEMS: Cerebrovascular: No dizziness or visual disturbances. Cardiovascular: No chest pain or shortness of breath. Pulmonary: No wheezing or hemoptysis. GI: As per above. : No urgency or hematuria. OB: She has a healthy baby boy delivered 2 weeks ago. She is nursing presently. PHYSICAL EXAMINATION GENERAL: She is a well-developed, slender female, appears to be somewhat pale and fatigued, but otherwise awake, alert, conversant and very pleasant. VITAL SIGNS: Temperature 101, pulse 125, blood pressure 108/70. LUNGS: Clear to auscultation with normal respiratory effort. HEART: Regular rate and rhythm without murmurs, rubs or gallops. ABDOMEN: Soft and slightly distended. She had normoactive bowel sounds throughout. There are no prior surgical incisions or hernias. She has tenderness throughout her abdomen, more severe in the right lower quadrant with some voluntary guarding. There was no muscle rigidity, however. PSYCHIATRIC: She is awake, alert and oriented x3. She has normal judgment and insight. IMPRESSION: 1. Acute appendicitis. 2. Two weeks , presently nursing. PLAN/RECOMMENDATIONS: Laparoscopic appendectomy today. I discussed the findings and the clinical history and physical exam as well as the CT scan, all are consistent with acute appendicitis. I recommend proceeding with surgery today as a definitive treatment for her acute appendicitis. She agrees with this plan, and we will proceed this afternoon. The risks, but not limited to bleeding, of bleeding, infection, intraabdominal abscess formation, injury to peritoneal and retroperitoneal structures, possibility of an open procedure, postoperative hospital stay and recovery times were also discussed. I did not discuss nonoperative management with IV antibiotics as she is nursing and wishes to proceed with surgery to avoid any prolonged antibiotics if possible. We will proceed today after keeping her n.p.o., IV fluids and a single dose of IV antibiotics preoperatively. [id number]/[facility] #: [id number] DARA
--- NOTE | 2018-03-20 16:22 | BRIEFOPN ---
Brief Operative Note - Surgery Procedures: Procedures OPERATIVE REPORT PRE-OP: Acute appendicitis POST-OP: Acute appendicitis with purulent peritonitis PROCEDURE: Laparoscopic appendectomy SURGEON: MD Cyrus ANESTHESIA: General with Local with Dr. Mensah ASST: none IVF:1.6 liters of crystalloid EBL:min SPECIMEN:Appendix DRAIN: none WOUND CLASS:4 COMPLICATIONS: none TO PACU
[2018-03-20] MEDS ORDERED: Ondansetron INJ* 2 MG/ML VIAL IV PRN (16:38)
[2018-03-20] MEDS ORDERED: Acetaminophen TAB* 325 MG PO PRN (16:38)
[2018-03-20] MEDS ORDERED: Ketorolac INJ* 30 MG/ML 1 ML VIAL ONE (18:20)
[2018-03-20] MEDS: Ketorolac INJ* 30 MG/ML 1 ML VIAL IV PUSH PRN (18:22)
[2018-03-20] MEDS: NS 0.9% 1000 ML* 1,000 ML IV SCH (18:25)
[2018-03-20] MEDS: oxyCODONE/Acetamin 5/325 MG* TAB PO PRN ×2 (19:05→23:09)
[2018-03-20] MEDS: Heparin VIAL(*) 5000 UNITS/ML VIAL (FIVE THOUSAND) SUBCUT SCH (20:23)
[2018-03-20] MEDS: ceFOXitin 2 GM IVPREMIX* 2 GM/50 ML BAG IVPB SCH (20:38)
--- NOTE | 2018-03-20 22:12 | OP ---
CC: [facility].* DATE OF OPERATION: 03/20/18 - ROOM #341 DATE OF : 95 SURGEON: Miguel Bridges MD SALES NEGOTIATOR: None. ANESTHESIOLOGIST: Dr. Mensah. ANESTHESIA: General with local. PRE-OP DIAGNOSIS: Acute appendicitis. POST-OP DIAGNOSIS: Acute appendicitis with purulent peritonitis. OPERATIVE PROCEDURE: Laparoscopic appendectomy. IV FLUIDS: 1.6 L of crystalloid. SPECIMEN: Appendix. DRAINS: None. WOUND CLASSIFICATION: IV. FINDINGS: Appendix showed acute suppurative change and was retrocecal. There was no evidence of gangrene or perforation. There was pus in the lower abdominal quadrants and pelvis but the uterus and ovaries appear to be unremarkable. The terminal ileum and cecum are also normal. DESCRIPTION OF PROCEDURE: Written informed consent was obtained, the abdomen was marked with indelible ink, and preoperative antibiotics were administered. The patient was taken to the operating room and placed in the supine position. Sequential compression devices and a warming blanket were applied. General anesthesia was administered and the abdomen was prepped and draped in usual sterile fashion. Initially, a vertical incision was made just within and below the umbilical fold and the fascia was divided. The peritoneal cavity was entered under direct vision. A 12-mm blunt port was inserted. The abdomen was insufflated to 15 mmHg. Under direct vision, a 5 mm port was placed in the left lower quadrant, and a second 5 mm port was placed in the suprapubic position. Evaluation of the abdominal cavity revealed pus in the lower quadrants and pelvis. The uterus appeared to be of expected size, 2 weeks and appeared to be unremarkable. Both ovaries were unremarkable. Both the terminal ileum and cecum were unremarkable. Some of the areas of small bowel showed some erythema consistent with the pus that was identified. Careful evaluation of the right lower quadrant revealed the appendix which was retrocecal running from medial to lateral along the base of the cecum. The lateral peritoneal attachments of the appendix was able to be visualized, however, and it was thick walled and suppurative, consistent with acute appendicitis. The lateral peritoneal attachments were then divided using the L-hook cautery and I was able to grasp the appendix and bring this up into view as we mobilized it more out of the retroperitoneum. The mesoappendix was identified and divided sequentially with the LigaSure device. The appendix was quiet adherent to the cecum and also, there was the fatty attachment to the terminal ileum which was also adherent to the appendix and this was taken down with the LigaSure with care and meticulous dissection was able to follow the appendix down to its base and the cecum which was unremarkable. There was no noted evidence of gangrene or perforation of the appendix, however. The base of the appendix was then divided with an Endo LIBERTY ordaz load of 45 mm stapler, and the appendix was placed in the EndoCatch bag and brought out through the umbilical incision. I next used 6.5 to 8 L of saline to irrigate all four quadrants until clear of the abdominal cavity. Hemostasis was assured. The staple line was assured to be intact. All ports were removed under direct vision of the camera. There was no abdominal wall bleeding. The umbilical fascia was closed with interrupted 0 Vicryl suture. The skin at the other three incisions was approximated with subcuticular 4-0 Vicryl suture. Steri- Strips were applied. The patient tolerated the procedure well, was taken to the recovery room in stable condition. [id number]/[facility] #: [id number] DARA
[2018-03-20 23:13] LABS: Urine Appearance Clear; Urine Blood Negative (Negative); Urine Color Straw; Urine Ketones Negative (Negative); Urine Protein Negative (Negative); Urine Specific Gravity 1.005 (1.010-1.030); Urine Urobilinogen Negative (Negative)
[2018-03-21] MEDS: NS 0.9% 1000 ML* 1,000 ML IV SCH ×4 (00:54→23:03)
[2018-03-21] MEDS: ceFOXitin 2 GM IVPREMIX* 2 GM/50 ML BAG IVPB SCH ×4 (02:36→21:28)
[2018-03-21] MEDS: oxyCODONE/Acetamin 5/325 MG* TAB PO PRN ×4 (06:37→21:33)
[2018-03-21 06:56] LABS: ABS Basophils 0 10^3/ul (0-0.2); ABS Eosinophils 0 10^3/ul (0-0.6); ABS Lymphocytes 1.1 10^3/ul (1.0-4.8); ABS Monocytes 0.5 10^3/ul (0-0.8); ABS Neutrophils 10.7 10^3/ul (1.5-7.7); ABS Nucleated RBC 0 10^3/ul; Eosinophil % 0 % (0-6); Hematocrit 29 % (35-47); Hemoglobin 10.2 g/dl (12.0-16.0); Lymphocyte % 9.1 % (25-47); Mean Corpuscular HGB Conc 35 g/dl (31-36); Mean Corpuscular Hemoglobin 32 pg (27-31); Mean Corpuscular Volume 94 fL (80-97); Mean Platelet Volume 7.6 um3 (7.4-10.4); Nucleated Red Blood Cells % 0; Platelet Count 338 10^3/ul (150-450); Red Blood Count 3.15 10^6/ul (4.00-5.40); Red Cell Distribution Width 12 % (10.5-15); White Blood Count 12.4 10^3/ul (3.5-10.8)
[2018-03-21 07:17] LABS: EGFR Non-African American 144.2 (>60)
--- NOTE | 2018-03-21 08:16 | PN ---
Progress Note - Progress Note Date of Service: 03/21/18 SOAP: Subjective: Feels better but still with some left and right lower abdominal pain Passing flatus No N/V and tolerating liquids Nursing going well Objective: Temp Pulse Resp BP Pulse Ox 98.5 F 89 16 121/48 99 03/21/18 00:17 03/21/18 00:17 03/21/18 06:37 03/21/18 00:17 03/21/18 02:30 Intake & Output 03/19/18 03/20/18 03/21/18 03/22/18 06:59 06:59 06:59 06:59 Intake Total 6426 Output Total 2650 Balance 3776 Weight 170 lb Intake: IV Fluids 4326 LR 2300 NS (0.9%) 976 NS 50ML, Cefoxitin 2G 50 IVPB 100 ABX - CEFOXITIN 100 Oral 2000 Output: Urine 2650 PEX: Awake and alert-comfortable Lungs are clear Abd is soft and slightly distended. Incisions are CDI Bowel sounds are present Ext without edema Laboratory Results - last 24 hr 03/20/18 03/21/18 03/21/18 22:05 06:35 06:35 WBC 12.4 H RBC 3.15 L Hgb 10.2 L Hct 29 L MCV 94 MCH 32 H MCHC 35 RDW 12 Plt Count 338 MPV 7.6 Neut % (Auto) 86.6 H Lymph % (Auto) 9.1 L [place] % (Auto) 4.3 Eos % (Auto) 0 Baso % (Auto) 0 Absolute Neuts (auto) 10.7 H Absolute Lymphs (auto) 1.1 Absolute Monos (auto) 0.5 Absolute Eos (auto) 0 Absolute Basos (auto) 0 Absolute Nucleated RBC 0 Nucleated RBC % 0 Sodium 140 Potassium 3.8 Chloride 111 Carbon Dioxide 23 Anion Gap 6 BUN 8 Creatinine 0.53 Est GFR ( Amer) 174.5 Est GFR (Non-Af Amer) 144.2 BUN/Creatinine Ratio 15.1 Glucose 105 H Lactic Acid Calcium 8.2 L Total Bilirubin AST ALT Alkaline Phosphatase C-Reactive Protein Total Protein Albumin Globulin Albumin/Globulin Ratio Lipase Urine Color Straw Urine Appearance Clear Urine pH 6.0 Ur Specific [place] 1.005 L Urine Protein Negative Urine Ketones Negative Urine Blood Negative Urine Nitrate Negative Urine Bilirubin Negative Urine Urobilinogen Negative Ur Leukocyte Esterase 2+ A Urine WBC (Auto) 2+(11-20/hpf) A Urine RBC (Auto) Trace(0-2/hpf) Urine Bacteria Absent Urine Glucose Negative Assessment: POD#1 s/p lap appy for acute appendicitis with purulent peritonitis Afebrile WBC trending down Post --nursing son Plan: Continue IV cefoxitin IVF-she would like to continue at present rate Increase activity-pul toilet Sub q heparin Advance diet Recheck WBC in AM
[2018-03-21] MEDS: Heparin VIAL(*) 5000 UNITS/ML VIAL (FIVE THOUSAND) SUBCUT SCH ×2 (09:34→19:33)
[2018-03-22] MEDS: ceFOXitin 2 GM IVPREMIX* 2 GM/50 ML BAG IVPB SCH ×2 (03:31→09:01)
[2018-03-22] MEDS: NS 0.9% 1000 ML* 1,000 ML IV SCH (05:18)
[2018-03-22 07:19] LABS: ABS Basophils 0.2 10^3/ul (0-0.2); ABS Eosinophils 0.4 10^3/ul (0-0.6); ABS Lymphocytes 2.1 10^3/ul (1.0-4.8); ABS Monocytes 0.5 10^3/ul (0-0.8); ABS Neutrophils 4.6 10^3/ul (1.5-7.7); ABS Nucleated RBC 0 10^3/ul; Eosinophil % 5.8 % (0-6); Hematocrit 29 % (35-47); Hemoglobin 10.1 g/dl (12.0-16.0); Lymphocyte % 26.9 % (25-47); Mean Corpuscular HGB Conc 35 g/dl (31-36); Mean Corpuscular Hemoglobin 33 pg (27-31); Mean Corpuscular Volume 93 fL (80-97); Mean Platelet Volume 7.8 um3 (7.4-10.4); Nucleated Red Blood Cells % 0; Platelet Count 345 10^3/ul (150-450); Red Blood Count 3.09 10^6/ul (4.00-5.40); Red Cell Distribution Width 13 % (10.5-15); White Blood Count 7.8 10^3/ul (3.5-10.8)
[2018-03-22 07:47] VITALS: BP 118/66
[2018-03-22] MEDS: Heparin VIAL(*) 5000 UNITS/ML VIAL (FIVE THOUSAND) SUBCUT SCH (07:49)
--- NOTE | 2018-03-22 08:56 | PN ---
Progress Note - Progress Note Date of Service: 03/22/18 SOAP: Subjective: Doing well-passing flatus, tolerating po Nursing going well Pain adequately controlled Objective: Temp Pulse Resp BP Pulse Ox 98.5 F 60 16 118/66 98 03/22/18 07:28 03/22/18 07:28 03/22/18 07:28 03/22/18 07:28 03/22/18 07:28 Intake & Output 03/20/18 03/21/18 03/22/18 03/23/18 06:59 06:59 06:59 06:59 Intake Total 6426 7707 Output Total 2650 8100 Balance 3776 -393 Weight 170 lb Intake: IV Fluids 4326 2907 ABX - CEFOXITIN 110 LR 2300 NS (0.9%) 976 990 NS 50ML, Cefoxitin 2G 50 IVPB 100 1100 ABX - CEFOXITIN 100 NS (0.9%) 990 Oral 2000 3700 Output: Urine 2650 8100 Other: Breast Milk Amount 120 PEX: Comfortable Lungs clear Abd is soft--incisions clean and dry. Bowel sounds are present. Non-distended. Ext without edema Laboratory Results - last 24 hr 03/22/18 06:44 WBC 7.8 RBC 3.09 L Hgb 10.1 L Hct 29 L MCV 93 MCH 33 H MCHC 35 RDW 13 Plt Count 345 MPV 7.8 Neut % (Auto) 59.4 Lymph % (Auto) 26.9 [place] % (Auto) 6.0 Eos % (Auto) 5.8 Baso % (Auto) 1.9 Absolute Neuts (auto) 4.6 Absolute Lymphs (auto) 2.1 Absolute Monos (auto) 0.5 Absolute Eos (auto) 0.4 Absolute Basos (auto) 0.2 Absolute Nucleated RBC 0 Nucleated RBC % 0 Assessment: POD# 2 s/p lap appy for acute appendicitis with purulent peritonitis Post- Plan: D/C home today 5 days of oral antibiotics Percocet Rx sent Office follow up next week Wound/Activity instructions given
[2018-03-22] MEDS: Ketorolac INJ* 30 MG/ML 1 ML VIAL IV PUSH PRN (09:00)
--- NOTE | 2018-03-22 12:04 | DS ---
CC: [facility]; [facility]. DISCHARGE SUMMARY: DATE OF ADMISSION: DATE OF DISCHARGE: PRINCIPAL DIAGNOSIS: Acute appendicitis with purulent peritonitis. SECONDARY DIAGNOSIS: None. PROCEDURE: Laparoscopic appendectomy. CONDITION ON DISCHARGE: Good. DISPOSITION: To home. INSTRUCTIONS ON DISCHARGE: The patient was given a prescription for Ceftin 500 mg p.o. b.i.d. for 5 days and a prescription for Percocet 1 tablet q.6 hours p.r.n. #7 with no refills. Wound instruction s, activity restrictions and dietary modifications were given. She was instructed to make a followup appointment in one week in the office. 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 She was note d to have a leukocytosis and a CT scan showed acute appendicitis. She is about 2 weeks an d has been nursing mother and is allergic to PENICILLIN. She was started on IV Cefoxitin in the [facility] room. HOSPITAL COURSE: After being seen at surgical consultation, she was taken to the operating room wher e she underwent laparoscopic appendectomy for acute appendicitis. She had purulent peritonitis and p us in the lower quadrants and pelvis, which was irrigated. Postoperatively, she did well and remained afebrile. White blood cell count returned to normal on Cefoxitin. She resumed nursing of her new b tila without difficulty. On the day of discharge, she was afebrile. Her white blood cell count was normal and she was dischar [facility]. [id number]/[facility] #: [id number]
--- NOTE | 2018-03-22 15:16 | ED ---
Joseph Peng Tiffany, scribed for Marc Augustin MD on 03/20/18 at 1006 . Abdominal Pain/Female - HPI Summary HPI Summary: 22 year old F presenting to [facility] complains of RLQ abdominal pain since 12:00 yesterday. States that pain is constant. Rates the pain 7/10 in severity. Symptoms aggravated by deep breathing, movement, lying flat. Symptoms alleviated by Ibuprofen. Additionally complains of insomnia, vomiting, normal bowel movements. Reports nausea and burning sensation that have since resolved. - History of Current Complaint Chief Complaint: EDAbdPain Stated Complaint: ABD PAIN Time Seen by Provider: 03/20/18 09:43 Hx Obtained From: Patient Onset/Duration: Lasting Days - 1, Still Present Timing: Constant Severity Currently: Moderate Pain Intensity: 7 Pain Scale Used: 0-10 Numeric Location: Discrete At: RLQ Aggravating Factor(s): Movement, Deep Breaths, Other: - lying flat Alleviating Factor(s): Medications - Ibuprofen Associated Signs and Symptoms: Positive: Other: - insomnia, vomiting, normal bowel movements. Reports nausea and burning sensation that have now resolved. Allergies/Adverse Reactions: Allergies Allergy/AdvReac Type Severity Reaction Status Date / Time Penicillins Allergy Hives Verified 03/20/18 09:36 shellfish derived Allergy Hives Verified 03/20/18 09:36 PMH/Surg Hx/FS Hx/Imm Hx Previously Healthy: No Endocrine/Hematology History: Denies: Hx Anticoagulant Therapy, Hx Diabetes, Hx Thyroid Disease Cardiovascular History: Denies: Hx Hypertension, Hx Pacemaker/ICD Respiratory History: Reports: Other Respiratory Problems/Disorders - INFLUENZA A THIS SEASON - RESOLVED W/O RESIDUAL EFFECTS Denies: Hx Asthma, Hx Chronic Obstructive Pulmonary Disease (COPD) GI History: Denies: Hx Crohn's Disease, Hx Gall Bladder Disease, Hx Gastroesophageal Reflux Disease, Hx Ulcer History: Denies: Hx Kidney Infection, Hx Kidney Stones, Hx Renal Disease Sensory History: Denies: Hx Hearing Aid Neurological History: Denies: Hx Dementia, Hx Seizures Psychiatric History: Denies: Hx Panic Disorder, Hx Substance Abuse - Surgical History Surgery Procedure, Year, and Place: ta. tonsillectomy Infectious Disease History: No Infectious Disease History: Denies: Hx Clostridium Difficile, Hx Hepatitis, Hx Human Immunodeficiency Virus (HIV), Hx of Known/Suspected MRSA, Hx Shingles, Hx Tuberculosis, Hx Known/ Suspected VRE, Hx Known/Suspected VRSA, History Other Infectious Disease, Traveled Outside the [place] in Last 30 Days - Family History Known Family History: Positive: Diabetes - Social History Occupation: Employed Full-time - nurse in ED Alcohol Use: None Hx Substance Use: No Substance Use Type: Reports: None Hx Tobacco Use: No Smoking Status (MU): Never Smoked Tobacco Have You Smoked in the Last Year: No Review of Systems Positive: Abdominal Pain - RLQ, Vomiting, Nausea - since resolved, Other - normal bowel movements Positive: burning - since resolved Positive: Other - insomnia All Other Systems Reviewed And Are Negative: Yes Physical Exam - Summary Physical Exam Summary: Appearance: The patient is well-nourished in no acute distress and in no acute pain. Skin: The skin is warm and dry and skin color reflects adequate perfusion. HEENT: The head is normocephalic and atraumatic. The pupils are equal and reactive. The conjunctivae are clear and without drainage. Nares are patent and without drainage. Mouth reveals moist mucous membranes and the throat is without erythema and exudate. The external ears are intact. The ear canals are patent and without drainage. The tympanic membranes are intact. Neck: The neck is supple with full range of motion and non-tender. There are no carotid bruits. There is no neck vein distension. Respiratory: Chest is non-tender. Lungs are clear to auscultation and breath sounds are symmetrical and equal. Cardiovascular: Heart is regular rate and rhythm. There is no murmur or rub auscultated. There is no peripheral edema and pulses are symmetrical and equal. Abdomen: The abdomen has diffuse tenderness that is worse in the RLQ. There is mild rebound. There are normal bowel sounds heard in all four quadrants and there is no organomegaly palpated. Musculoskeletal: There is no back tenderness noted. Extremities are non-tender with full range of motion. There is good capillary refill. There is no peripheral edema or calf tenderness elicited. Neurological: Patient is alert and oriented to person, place and time. The patient has symmetrical motor strength in all four extremities. Cranial nerves are grossly intact. Deep tendon reflexes are symmetrical and equal in all four extremities. Psychiatric: The patient has an appropriate affect and does not exhibit any anxiety or depression. Triage Information Reviewed: Yes Vital Signs On Initial Exam: Initial Vitals Temp Pulse Resp BP Pulse Ox 99.0 F 107 17 101/59 100 03/20/18 09:34 03/20/18 09:34 03/20/18 09:34 03/20/18 09:34 03/20/18 09:34 Vital Signs Reviewed: Yes Diagnostics - Vital Signs Vital Signs Temp Pulse Resp BP Pulse Ox 03/20/18 09:34 99.0 F 107 17 101/59 100 - Laboratory Lab Results: Lab Results 03/20/18 03/20/18 03/20/18 Range/Units 10:10 10:10 10:10 WBC 13.1 H (3.5-10.8) 10^3/ul RBC 4.09 (4.00-5.40) 10^6/ul Hgb 13.2 (12.0-16.0) g/dl Hct 39 (35-47) % MCV 94 (80-97) fL MCH 32 H (27-31) pg MCHC 34 (31-36) g/dl RDW 12 (10.5-15) % Plt Count 449 (150-450) 10^3/ul MPV 7.8 (7.4-10.4) um3 Neut % (Auto) 92.5 H (38-83) % Lymph % (Auto) 5.0 L (25-47) % [place] % (Auto) 2.0 (0-7) % Eos % (Auto) 0.3 (0-6) % Baso % (Auto) 0.2 (0-2) % Absolute Neuts (auto) 12.1 H (1.5-7.7) 10^3/ul Absolute Lymphs (auto) 0.7 L (1.0-4.8) 10^3/ul Absolute Monos (auto) 0.3 (0-0.8) 10^3/ul Absolute Eos (auto) 0 (0-0.6) 10^3/ul Absolute Basos (auto) 0 (0-0.2) 10^3/ul Absolute Nucleated RBC 0 10^3/ul Nucleated RBC % 0 Sodium 137 (135-145) mmol/L Potassium 3.7 (3.5-5.0) mmol/L Chloride 103 (101-111) mmol/L Carbon Dioxide 26 (22-32) mmol/L Anion Gap 8 (2-11) mmol/L BUN 13 (6-24) mg/dL Creatinine 0.68 (0.51-0.95) mg/dL Est GFR ( Amer) 130.9 (>60) Est GFR (Non-Af Amer) 108.2 (>60) BUN/Creatinine Ratio 19.1 (8-20) Glucose 100 (70-100) mg/dL Lactic Acid 1.2 (0.5-2.0) mmol/L Calcium 9.7 (8.6-10.3) mg/dL Total Bilirubin 0.70 (0.2-1.0) mg/dL AST 14 (13-39) U/L ALT 20 (7-52) U/L Alkaline Phosphatase 100 (34-104) U/L C-Reactive Protein 48.52 H (<8.01) mg/L Total Protein 7.2 (6.4-8.9) g/dL Albumin 4.1 (3.2-5.2) g/dL Globulin 3.1 (2-4) g/dL Albumin/Globulin Ratio 1.3 (1-3) Lipase 15 (11.0-82.0) U/L Result Diagrams: 03/22/18 06:44 03/21/18 06:35 Lab Statement: Any lab studies that have been ordered have been reviewed, and results considered in the medical decision making process. - CT Abd/Pel CT Interpretation Completed By: Radiologist - 1. Acute appendicitis with moderate periappendiceal inflammatory change. Negative for perienteric abscess. 2. Associated RIGHT lower quadrant reactive lymph nodes. Results assessed with Dr. Augustin 03/20/2018 12:31 PM EDT. ED physician has reviewed this report. - Additional Comments Diagnostic Additional Comments: Appendix US, per radiologist, shows FREE FLUID WITHIN THE RIGHT LOWER QUADRANT. THERE IS NO LOCULATED FLUID COLLECTION. THE APPENDIX IS NOT VISUALIZED. ED physician has reviewed this report. Pelvis US, per radiologist, shows POST APPEARANCE OF THE UTERUS. MILDLY HETEROGENEOUS ENDOMETRIUM WITH SMALL AMOUNT OF ENDOMETRIAL FLUID. ED physician has reviewed this report. Re-Evaluation - Re-Evaluation First Eval Re-Evaluation Time: 12:30 Comment: patient is agreeable to admission Abdominal Pain Fem Course/Dx - Course Course Of Treatment: Sunni continued to have significant abdominal pain and tenderness in spite of an indeterminate ultrasound of her abdomen therefore CT was obtained which showed acute appendicitis. Dr. Mckenzie was contacted and took her to the OR. - Diagnoses Provider Diagnoses: Appendicitis - Provider Notifications Discussed Care Of Patient With: Lucille Eller Time Discussed With Above Provider: 12:38 Instructed by Provider To: Other - Dr. Eller, surgery, agrees to admit patient. Discharge - Sign-Out/Discharge Documenting (check all that apply): Discharge/Admit/Transfer - Admit - Discharge Plan Condition: Good Disposition: ADMITTED TO [facility] - Billing Disposition and Condition Condition: GOOD Disposition: Admitted to [facility] The documentation as recorded by the Joseph mcneill Tiffany accurately reflects the service I personally performed and the decisions made by , Marc Augustin MD.
[2018-03-23] MEDS ORDERED: Scopolamine PATCH Remove* 1 NOTE MISC PATCH OFF ONE (14:44)
== END 2018-03-22 10:40 | disposition home or self-care (01) ==
LOC: ED 09:32 → OR 13:16 → SSU 16:30
PROVIDERS: ADMIT Surgery; ATTEND Surgery
PROC: 0DTJ4ZZ Resection of Appendix, Percutaneous Endoscopic Approach (ICD-10-PCS; principal; 2018-03-20 14:15)
DX: K35.3 Acute appendicitis with localized peritonitis (principal); Z88.0 Allergy status to penicillin; Z79.899 Other long term (current) drug therapy
CPT/HCPCS: 36415; 74176; 76705; 76856; 80048; 80053; 81003; 81015; 83605; 83690; 85025; 86140; 87086; 88304; 96365; 96366; 96375; 96376; 99283; A9270-GY; C1776; G0378; J0694; J0780; J1100; J1644; J1885; J2250; J2704; J2710; J3010

== ENCOUNTER 2018-11-27 07:45 | Emergency (ER) | payer BC, OTHER ==
[2018-11-27 07:49] VITALS: BP 108/86
[2018-11-27 08:10] LABS: Influenza A Molecular NEGATIVE (Negative); Influenza B Molecular NEGATIVE (Negative)
--- NOTE | 2018-11-27 17:51 | ED ---
Influenza-Like Illness - HPI Summary HPI Summary: Patient is a 23-year-old female who presents emergency department for flulike symptoms a started yesterday. Patient complaining of fever, chills, bodyaches, myalgias, nasal congestion. Patient is a nurse in the ER here. No past medical history. Symptoms are mild in severity. No current modifying factors. Patient otherwise denies abdominal pain, vomiting, diarrhea, cough, shortness of breath, urinary symptoms. - History of Current Complaint Chief Complaint: EDFluSymptoms Time Seen by Provider: 11/27/18 08:18 Hx Obtained From: Patient - Allergy/Home Medications Allergies/Adverse Reactions: Allergies Allergy/AdvReac Type Severity Reaction Status Date / Time Penicillins Allergy Hives Verified 11/27/18 07:49 shellfish derived Allergy Hives Verified 11/27/18 07:49 PMH/Surg Hx/FS Hx/Imm Hx Previously Healthy: Yes Endocrine/Hematology History: Denies: Hx Anticoagulant Therapy, Hx Diabetes, Hx Thyroid Disease Cardiovascular History: Denies: Hx Hypertension, Hx Pacemaker/ICD Respiratory History: Reports: Other Respiratory Problems/Disorders - INFLUENZA A THIS SEASON - RESOLVED W/O RESIDUAL EFFECTS Denies: Hx Asthma, Hx Chronic Obstructive Pulmonary Disease (COPD) GI History: Denies: Hx Crohn's Disease, Hx Gall Bladder Disease, Hx Gastroesophageal Reflux Disease, Hx Ulcer History: Denies: Hx Kidney Infection, Hx Kidney Stones, Hx Renal Disease Sensory History: Denies: Hx Contacts or Glasses, Hx Hearing Aid Opthamlomology History: Denies: Hx Contacts or Glasses Neurological History: Denies: Hx Dementia, Hx Seizures Psychiatric History: Denies: Hx Panic Disorder, Hx Substance Abuse - Surgical History Surgery Procedure, Year, and Place: ta. tonsillectomy Hx Anesthesia Reactions: No Infectious Disease History: No Infectious Disease History: Denies: Hx Clostridium Difficile, Hx Hepatitis, Hx Human Immunodeficiency Virus (HIV), Hx of Known/Suspected MRSA, Hx Shingles, Hx Tuberculosis, Hx Known/ Suspected VRE, Hx Known/Suspected VRSA, History Other Infectious Disease, Traveled Outside the [place] in Last 30 Days - Family History Known Family History: Positive: Unknown, Diabetes, Non-Contributory - Social History Occupation: Employed Full-time Lives: With Family Alcohol Use: None Hx Substance Use: No Substance Use Type: Reports: None Hx Tobacco Use: No Smoking Status (MU): Never Smoked Tobacco Have You Smoked in the Last Year: No Review of Systems Positive: Fever, Chills Eyes: Negative Positive: Sore Throat, Nasal Discharge Cardiovascular: Negative Positive: Cough. Negative: Shortness Of Breath Gastrointestinal: Negative Negative: Abdominal Pain, Vomiting, Diarrhea Skin: Negative Positive: Headache All Other Systems Reviewed And Are Negative: Yes Physical Exam Triage Information Reviewed: Yes Vital Signs On Initial Exam: Initial Vitals Temp Pulse Resp BP Pulse Ox 97.6 F 104 16 108/86 99 11/27/18 07:46 11/27/18 07:46 11/27/18 07:46 11/27/18 07:46 11/27/18 07:46 Vital Signs Reviewed: Yes Appearance: Positive: Well-Appearing - Pt. standing in room in NAD. Skin: Positive: Warm, Dry Head/Face: Positive: Normal Head/Face Inspection Eyes: Positive: Normal, EOMI, TOON ENT: Positive: Pharynx normal, Nasal congestion, TMs normal. Negative: Tonsillar swelling, Tonsillar exudate Neck: Positive: Supple, Nontender. Negative: Nuchal Rigidity Respiratory/Lung Sounds: Positive: Clear to Auscultation, Breath Sounds Present. Negative: Rales, Rhonchi, Stridor, Wheezes Cardiovascular: Positive: Normal, RRR Musculoskeletal: Positive: Normal, Strength/ROM Intact Neurological: Positive: Normal, CN Intact II-III Psychiatric: Positive: Affect/Mood Appropriate Diagnostics - Vital Signs Vital Signs Temp Pulse Resp BP Pulse Ox 11/27/18 08:31 97.6 F 104 16 108/86 99 11/27/18 07:46 97.6 F 104 16 108/86 99 - Laboratory Lab Results: Lab Results 11/27/18 Range/Units 07:59 Influenza A (Rapid) Negative (Negative) Influenza B (Rapid) Negative (Negative) Lab Statement: Any lab studies that have been ordered have been reviewed, and results considered in the medical decision making process. Flu Symptom Course/Dx - Course Course Of Treatment: Patient presenting with flulike symptoms. She is afebrile with stable vital signs. Rapid influenza swab is a [place]. Suspect viral etiology. We'll treat conservatively. Advised increase fluids and rest. Tylenol or Motrin for pain as directed. Close follow-up with family doctor symptoms persist and return to the ER if symptoms change or worsen. Patient understands and agrees with plan. - Diagnoses Differential Diagnosis/HQI/PQRI: Positive: Influenza, Upper Respiratory Infection Provider Diagnoses: Viral syndrome Discharge - Sign-Out/Discharge Documenting (check all that apply): Patient Departure Patient Received Moderate/Deep Sedation with Procedure: No - Discharge Plan Condition: Good Disposition: HOME Patient Education Materials: Viral Syndrome (ED) Referrals: [facility] [Outside] Additional Instructions: Schedule a follow up appointment with PCP if symptoms persist Increase fluids and rest Tylenol or Motrin for pain as directed Return to ER if symptoms change or worsen - Billing Disposition and Condition Condition: GOOD Disposition: Home
== END 2018-11-27 08:31 | disposition home or self-care (01) ==
LOC: ED 07:45
DX: B34.9 Viral infection, unspecified (principal); Z88.0 Allergy status to penicillin; Z91.013 Allergy to seafood
CPT/HCPCS: 99281

== ENCOUNTER 2019-10-03 11:09 | Emergency (ER) | payer BC ==
[2019-10-03 11:30] LABS: Influenza B Molecular POSITIVE (Negative)
--- OUTSIDE RECORDS SUMMARY | 2019-10-03 11:40 | XMS REPORT | Continuity of Care Document ---
:1995 External Reference #:[id number] Author Name Anastacia Ziegler Description No Information Available Social History Type Date Description Comments Sex Unknown Tobacco Use Start: Unknown Patient has never smoked Smoking Status Reviewed: 03/27/18 Patient has never smoked Exercise Type/Frequency Exercises regularly Allergies, Adverse Reactions, Alerts Active Allergies Reaction Severity Comments Date Penicillin childhood 03/27/2018 Medications Active Medications SIG Qnty Indications Ordering Provider Date Vitamin 1 by mouth every Unknown Tablets day Ceftin 500mg twice Unknown daily Immunizations Description No Information Available Vital Signs Date Vital Result Comment 03/27/2018 2:30pm Height 69 inches 5'9" Weight 170.00 lb Heart Rate 78 /min BP Systolic Sitting 124 mmHg BP Diastolic Sitting 68 mmHg Respiratory Rate 18 /min Body Temperature 98.1 F BMI (Body Mass Index) 25.1 kg/m2 Results Test Acquired Date Facility Test Result H/L Range Note Quantifero 04/11/2019 [facility] QuantiferonTb Gold Negative Negative 1 n-TB Gold [address] [place] [address] [phone] TB1 Ag minus Nil Result 0.01 IU/mL TB2 Ag minus Nil Result 0.03 IU/mL Mitogen minus Nil Result 10.15 IU/mL Nil Result 0.02 IU/mL 1 M. tuberculosis infection NOT likely Procedures Description No Information Available Medical Devices Description No Information Available Encounters Description No Information Available Assessments Description No Information Available Plan of Treatment 03/27/2018 - Abram Bermudez, PAK35.2 Acute appendicitis with generalized peritonitisFollow up:As needed Functional Status Description No Information Available Mental Status Description No Information Available Referrals Description No Information Available
[2019-10-03 12:02] VITALS: BP 125/80
--- NOTE | 2019-10-03 12:14 | ED ---
HPI Febrile Illness - HPI Summary HPI Summary: This patient is an otherwise healthy 24-year-old female who is 13 weeks presenting to the ED with sweats, chills, cough, congestion and body aches. She did receive a flu vaccination this year. She states last time she was , she did have the flu at that time despite having the vaccination. She feels symptoms are similar. She has been taking Tylenol and ibuprofen with good relief of her fever. Symptoms began yesterday. She denies any associated nausea or vomiting at this time, however this is typical for her when she has nausea. - History of Current Complaint Chief Complaint: EDFluSymptoms Time Seen by Provider: 10/03/19 11:14 Hx Obtained From: Patient Hx Last Menstrual Period: 08/13/16 Onset/Duration: Started Days Ago - 1 day Timing: Constant Initial Severity: Mild Current Severity: Mild Pain Intensity: 0 Pain Scale Used: 0-10 Numeric Aggravating Factors: Nothing Alleviating Factors: Nothing Associated Signs and Symptoms: Diaphoresis, Joint Pain, Myalgia - Additional Pertinent History Primary Care Physician: FARHANA - Allergy/Home Medications Allergies/Adverse Reactions: Allergies Allergy/AdvReac Type Severity Reaction Status Date / Time Penicillins Allergy Hives Verified 10/03/19 11:13 shellfish derived Allergy Hives Verified 10/03/19 11:13 PMH/Surg Hx/FS Hx/Imm Hx Previously Healthy: Yes Endocrine/Hematology History: Denies: Hx Anticoagulant Therapy, Hx Diabetes, Hx Thyroid Disease Cardiovascular History: Denies: Hx Hypertension, Hx Pacemaker/ICD Respiratory History: Reports: Other Respiratory Problems/Disorders - INFLUENZA A THIS SEASON - RESOLVED W/O RESIDUAL EFFECTS Denies: Hx Asthma, Hx Chronic Obstructive Pulmonary Disease (COPD) GI History: Denies: Hx Crohn's Disease, Hx Gall Bladder Disease, Hx Gastroesophageal Reflux Disease, Hx Ulcer History: Denies: Hx Kidney Infection, Hx Kidney Stones, Hx Renal Disease Sensory History: Denies: Hx Contacts or Glasses Opthamlomology History: Denies: Hx Contacts or Glasses Neurological History: Denies: Hx Dementia, Hx Seizures Psychiatric History: Denies: Hx Panic Disorder, Hx Substance Abuse - Surgical History Surgery Procedure, Year, and Place: ta. tonsillectomy Hx Anesthesia Reactions: No - Immunization History Hx Pertussis Vaccination: No Immunizations Up to Date: Yes Infectious Disease History: No Infectious Disease History: Denies: Hx Clostridium Difficile, Hx Hepatitis, Hx Human Immunodeficiency Virus (HIV), Hx of Known/Suspected MRSA, Hx Shingles, Hx Tuberculosis, Hx Known/ Suspected VRE, Hx Known/Suspected VRSA, History Other Infectious Disease, Traveled Outside the [place] in Last 30 Days - Family History Known Family History: Positive: Unknown, Diabetes, Non-Contributory - Social History Occupation: Employed Full-time Lives: With Family Alcohol Use: Occasionally Hx Substance Use: No Substance Use Type: Reports: None Hx Tobacco Use: No Smoking Status (MU): Never Smoked Tobacco Have You Smoked in the Last Year: No Review of Systems Positive: Fever, Chills, Fatigue, Skin Diaphoresis Negative: Palpitations, Chest Pain Negative: Shortness Of Breath, Cough Genitourinary: Negative Positive: no symptoms reported, see HPI Negative: Arthralgia, Myalgia Negative: Headache, Weakness, Paresthesia, Numbness All Other Systems Reviewed And Are Negative: Yes Physical Exam Triage Information Reviewed: Yes Vital Signs On Initial Exam: Initial Vitals Temp Pulse Resp BP Pulse Ox 98.0 F 83 16 126/78 99 10/03/19 11:11 10/03/19 11:11 10/03/19 11:11 10/03/19 11:11 10/03/19 11:11 Vital Signs Reviewed: Yes Appearance: Positive: Well-Appearing, Well-Nourished Skin: Positive: Warm, Skin Color Reflects Adequate Perfusion Head/Face: Positive: Normal Head/Face Inspection Eyes: Positive: EOMI, Conjunctiva Clear Neck: Positive: Supple, No Lymphadenopathy Respiratory/Lung Sounds: Positive: Clear to Auscultation, Breath Sounds Present Cardiovascular: Positive: RRR, Pulses are Symmetrical in both Upper and Lower Extremities Musculoskeletal: Positive: Normal, Strength/ROM Intact Neurological: Positive: Speech Normal Psychiatric: Positive: Normal, Affect/Mood Appropriate AVPU Assessment: Alert Procedures - Sedation Patient Received Moderate/Deep Sedation with Procedure: No Diagnostics - Vital Signs Vital Signs Temp Pulse Resp BP Pulse Ox 10/03/19 12:00 98.5 F 85 16 125/80 100 10/03/19 11:11 98.0 F 83 16 126/78 99 - Laboratory Lab Results: Lab Results 10/03/19 Range/Units 11:15 Influenza A (Rapid) Not Reportable Influenza B (Rapid) Positive A (Negative) Lab Statement: Any lab studies that have been ordered have been reviewed, and results considered in the medical decision making process. Course/Dx - Course Course Of Treatment: Patient is evaluated for flulike symptoms. Lungs CTA, RRR. Afebrile on arrival, however she has been taking Tylenol and ibuprofen. Influenza B-positive. Patient is given a note for work 7 days. Due to , Tamiflu 5 days given. Reglan given for associated nausea if needed. - Diagnoses Provider Diagnoses: Influenza B Discharge ED - Sign-Out/Discharge Documenting (check all that apply): Patient Departure - Discharge Plan Condition: Stable Disposition: HOME Prescriptions: Metoclopramide TAB* [Reglan TAB*] 10 mg PO Q8H #15 tab Oseltamivir CAP* [Tamiflu CAP*] 75 mg PO BID #10 cap Patient Education Materials: Influenza (ED) Forms: *Work Release Referrals: No Primary Care Phys,NOPCP [Primary Care Provider] - Additional Instructions: Take 1 tab twice daily x 5 days Reglan three times daily as needed for nausea - Billing Disposition and Condition Condition: STABLE Disposition: Home
== END 2019-10-03 12:00 | disposition home or self-care (01) ==
LOC: ED 11:09
DX: O26.891 Other specified pregnancy related conditions, first trimester (principal); J10.1 Influenza due to other identified influenza virus with other respiratory manifestations; Z3A.13 13 weeks gestation of pregnancy; Z88.0 Allergy status to penicillin; Z91.013 Allergy to seafood
CPT/HCPCS: 99282

== ENCOUNTER 2019-10-05 20:59 | Emergency (ER) | payer BC ==
[2019-10-05 21:07] VITALS: BP 127/60
--- NOTE | 2019-10-05 21:11 | UC ---
Throat Pain/Nasal Nick HPI - HPI Summary HPI Summary: Pt presents with c/o sudden onset of ST. Pt was diagnosed with Flu B 2 days ago and is currently taking tamiflu. Pt is 13 weeks . Pt is concerned she has strep throat. - History of Current Complaint Stated Complaint: FLU LIKE SYMPTOMS Time Seen by Provider: 10/05/19 21:00 Hx Obtained From: Patient Hx Last Menstrual Period: 07/03/19 ?: No Onset/Duration: Sudden Onset, Lasting Days, Still Present Severity: Moderate Pain Intensity: 4 Cough: Nonproductive Associated Signs & Symptoms: Positive: Dysphagia - Epiglottits Risk Factors Epiglottis Risk Factors: Negative - Allergies/Home Medications Allergies/Adverse Reactions: Allergies Allergy/AdvReac Type Severity Reaction Status Date / Time Penicillins Allergy Hives Verified 10/05/19 21:03 shellfish derived Allergy Hives Verified 10/05/19 21:03 Home Medications: Home Medications Acetaminophen [Tylenol Extra Strength] 1,000 mg PO ONCE 10/05/19 [History Confirmed 10/05/19] PMH/Surg Hx/FS Hx/Imm Hx Previously Healthy: Yes Other History Of: Negative For: Anticoagulant Therapy - Surgical History Surgical History: Yes Surgery Procedure, Year, and Place: tonsillectomy. appendectomy - Family History Known Family History: Positive: Unknown, Diabetes, Non-Contributory - Social History Occupation: Employed Full-time - Pt is a RN at [employer] Lives: With Family Alcohol Use: None Substance Use Type: None Smoking Status (MU): Never Smoked Tobacco Have You Smoked in the Last Year: No - Immunization History Most Recent Influenza Vaccination: 2017 Most Recent Pneumonia Vaccination: never Hx Tetanus, Diphtheria Vaccination: Yes Vaccination Up to Date: Yes Review of Systems All Other Systems Reviewed And Are Negative: Yes Constitutional: Positive: Chills, Fatigue Skin: Positive: Negative Eyes: Positive: Negative ENT: Positive: Sore Throat Respiratory: Positive: Cough Cardiovascular: Positive: Negative Gastrointestinal: Positive: Negative Genitourinary: Positive: Negative Motor: Positive: Negative Neurovascular: Positive: Negative Musculoskeletal: Positive: Myalgia Neurological: Positive: Negative Psychological: Positive: Negative Is Patient Immunocompromised?: No Physical Exam Triage Information Reviewed: Yes Appearance: Well-Appearing Vital Signs: Initial Vital Signs Temp 98.3 F 10/05/19 21:05 Pulse 77 10/05/19 21:05 Resp 15 10/05/19 21:05 BP 127/60 10/05/19 21:05 Pulse Ox 100 10/05/19 21:05 Vital Signs Reviewed: Yes Eye Exam: Normal ENT: Positive: Pharyngeal erythema Dental Exam: Normal Neck exam: Normal Neck: Positive: Nontender, No Lymphadenopathy Respiratory Exam: Normal Respiratory: Positive: Normal breath sounds Cardiovascular Exam: Normal Musculoskeletal Exam: Normal Neurological Exam: Normal Psychological Exam: Normal Skin Exam: Normal Throat Pain/Nasal Course/Dx - Differential Dx/Diagnosis Differential Diagnosis/HQI/PQRI: Influenza, Pharyngitis, Tonsillitis Provider Diagnosis: Sore throat (viral) Discharge ED - Sign-Out/Discharge Documenting (check all that apply): Patient Departure All imaging exams completed and their final reports reviewed: No Studies - Discharge Plan Condition: Stable Disposition: HOME Patient Education Materials: Pharyngitis (ED) Referrals: [facility] [place] [facility] [Outside] No Primary Care Phys,NOPCP [Primary Care Provider] - Additional Instructions: Please follow up with your PCP and OB provider as needed. - Billing Disposition and Condition Condition: STABLE Disposition: Home
== END 2019-10-05 21:28 | disposition home or self-care (01) ==
LOC: UCCORT 20:59
DX: O99.511 Diseases of the respiratory system complicating pregnancy, first trimester (principal); Z3A.13 13 weeks gestation of pregnancy; J02.8 Acute pharyngitis due to other specified organisms; R68.83 Chills (without fever); R53.83 Other fatigue; R05 Cough; Z88.0 Allergy status to penicillin; Z91.013 Allergy to seafood
CPT/HCPCS: 87651; 99211; G0463

== ENCOUNTER 2020-04-09 06:10 | Inpatient (IN) ==
[2020-04-09] MEDS ORDERED: Lactated Ringers 1000 ml BAG 1,000 ML IV ONE (06:36)
[2020-04-09] MEDS ORDERED: Lactated Ringers 1000 ml BAG 1,000 ML IV SCH ×2 (07:00→11:00)
[2020-04-09] MEDS ORDERED: Witch Hazel PAD JAR TOPICAL PRN (10:50)
[2020-04-09] MEDS ORDERED: Dibucaine 1% OINT 28.35 GM TUBE PR PRN (10:50)
[2020-04-09] MEDS ORDERED: Glycerin ADULT 2.4 gm SUPP PR PRN (10:50)
[2020-04-09 10:59] LABS: Urine Benzodiazepine Screen None Detected (None Detect); Urine Opiates Screen None Detected (None Detect)
[2020-04-10 07:35] VITALS: BP 109/60
[2020-04-10 08:27] LABS: ABS Eosinophils 0.2 10^3/ul (0-0.6); ABS Lymphocytes 1.8 10^3/ul (1.0-4.8); ABS Monocytes 0.4 10^3/ul (0-0.8); Hematocrit 35 % (35-47); Hemoglobin 12.1 g/dL (12.0-16.0); Lymphocyte % 18.3 %; Mean Corpuscular HGB Conc 35 g/dL (31-36); Mean Corpuscular Hemoglobin 33 pg (27-31); Mean Corpuscular Volume 94 fL (80-97); Mean Platelet Volume 8.4 fL (7.4-10.4); Platelet Count 259 10^3/uL (150-450); Red Blood Count 3.67 10^6 /uL (3.70-4.87); Red Cell Distribution Width 13 % (10-15); White Blood Count 9.7 10^3/uL (3.5-10.8)
== END 2020-04-10 14:30 | disposition home or self-care (01) | DRG 560 ==
LOC: MCHOBOUT 06:10 → MCHOB 06:17
PROVIDERS: ADMIT Midwife; ATTEND Midwife